=== PATIENT | male | born 1995 | race Two or more races ===

== ENCOUNTER 2022-01-27 17:27 | Emergency (ER) | payer MEDICARE, MEDICAID ==
[~2022-01-27] VITALS: Ht 188 cm; Wt 113.4 kg
[2022-01-27 18:35] LABS: Salicylate < 1.7 mg/dL (2.8-20.0)
[2022-01-27 18:51] LABS: Acetaminophen < 2.0 ug/mL (10-30)
[2022-01-27 19:42] LABS: Urine Bacteria FEW /hpf (None Seen); Urine Blood Negative /uL (Negative); Urine Hyaline Cast FEW /lpf (0 - 2); Urine Mucus FEW (None Seen); Urine Specific Gravity 1.021 (1.001-1.035); Urine WBC None Seen /hpf (0 - 3)
[2022-01-27 19:58] LABS: Alcohol, Urine < 3.0 mg/dL (0-10); Amphetamine Screen, Urine NEGATIVE (NEGATIVE); Barbiturate Scree,Urine NEGATIVE (NEGATIVE); Benzodiazephine Screen, Urine NEGATIVE (NEGATIVE); Cannabinoid Screen, Urine NEGATIVE (NEGATIVE); Cocaine Screen, Urine NEGATIVE (NEGATIVE); Opiate Scree,Urine NEGATIVE (NEGATIVE); Phencyclidine Screen, Urine NEGATIVE (NEGATIVE)
[2022-01-27 20:28] VITALS: BP 124/62
== END 2022-01-27 21:10 | disposition hospice, inpatient (51) ==
LOC: EDBD 17:27 → ER 17:27 → EDSEX 17:27 → ER 21:10
DX: R45.851 Suicidal ideations (principal); E11.9 Type 2 diabetes mellitus without complications; F17.210 Nicotine dependence, cigarettes, uncomplicated
CPT/HCPCS: 36415; 80307; 80320; 80329; 81001